=== PATIENT | male | born 1945 | race Caucasian/White ===

== ENCOUNTER → 2020-02-17 | Outpatient (CLI) | payer MEDICARE ==
[~2020-02-17] MED LIST: AMLO10 PO; ASPI81CH PO; Aspirin EC81 MG PO; BENAML10/40 PO; BYSTOLIC; Benicar Hct 401 EAC1 PO; CEPH500 PO; CLON.2 PO; CLOP75 PO; CYCL10 PO; DULO60 PO; EZET10-40 PO; FENO160 PO; FENO67 PO; HYDACE5 PO; HYDCHL25 PO; LEVSOD75 PO; METO50 PO; N-ACETYL-L-CYS600 MG PO; NEBI10 PO; SIMV40 PO; SPIR25 PO; SULTRIDS PO; VALS80 PO
== END | disposition home or self-care (01) ==
LOC: PLD 10:45 → LAB SHORT 10:45
DX: D22.5 Melanocytic nevi of trunk (principal)
CPT/HCPCS: 88305

== ENCOUNTER 2020-09-18 06:46 | Emergency (ER) | payer MEDICARE, BC ==
[~2020-09-18] VITALS: Ht 177.8 cm; Wt 117.9 kg
[~2020-09-18 06:46] MED LIST changes: +ATOR80 PO; +ATORVASTATIN CA80 M1; +COQ-10100 MG PO; +ELIQUIS5 M2 PO; +EUTHYROX175 MCG; +FURO40 PO; +L-LYSINE500 M1 PO; -LEVSOD75 PO; +OMEP20ER PO; -SIMV40 PO; +VITAMIN D325 MC3 PO
[2020-09-18] MEDS ORDERED: DOXY100 PO (07:36)
== END 2020-09-18 09:04 | disposition home or self-care (01) ==
LOC: ER 06:46
DX: L03.116 Cellulitis of left lower limb (principal); L03.115 Cellulitis of right lower limb; I10 Essential (primary) hypertension; I25.2 Old myocardial infarction; Z79.82 Long term (current) use of aspirin; Z79.899 Other long term (current) drug therapy; Z79.01 Long term (current) use of anticoagulants; Z87.891 Personal history of nicotine dependence; Z95.5 Presence of coronary angioplasty implant and graft
CPT/HCPCS: 36415; 99283; A9270

== ENCOUNTER → 2022-09-05 | Outpatient (CLI) | payer MEDICARE ==
[~2022-09-05] MED LIST changes: +ALLO300; +CATAPRES0.2 M1; +DOXY100 PO; +OLME20; +TRAM50
[2022-09-05 16:38] LABS: Source, Urine Clean Catch
[2022-09-05 17:35] LABS: Appearance, Urine Clear (Clear); Bilirubin, Urine Neg (Neg); Blood, Urine 1+ (Neg); Color, Urine Yellow (P-Yellow); Glucose Qualitative, Urine Neg (Neg); Ketones, Urine Neg (Neg); Leukocyte Esterase, Urine Neg (Neg); Nitrite, Urine Neg (Neg); Protein, Urine 3+ (Neg); Urobilinogen, Urine NORM (Normal)
[2022-09-05 17:51] LABS: Bacteria Few /hpf; Squamous Epithelial Cells Rare /hpf (Few); White Blood Cells, Urine 0-2 /hpf (0-5)
[2022-09-05 18:24] LABS: Creatinine, Urine Random 58.9 mg/dL (27.00-270.00); Protein, Urine Random 76.3 mg/dL (0.0-11.9); Protein/Creat Ratio, Ur Random 1.3
== END | disposition home or self-care (01) ==
LOC: LAB SHORT 14:20
PROVIDERS: Internal Medicine Nephrology
DX: N18.32 Chronic kidney disease, stage 3b (principal)
CPT/HCPCS: 81001; 82570; 84156

== ENCOUNTER 2024-08-15 21:45 | Emergency (ER) | payer OTHER ==
[~2024-08-15] VITALS: Ht 175.3 cm; Wt 86.2 kg
[2024-08-15 21:48] VITALS: BP 136/70
== END 2024-08-15 22:25 | disposition home or self-care (01) ==
LOC: ER 21:45
DX: M25.512 Pain in left shoulder (principal); I10 Essential (primary) hypertension; I25.2 Old myocardial infarction; W19.XXXA Unspecified fall, initial encounter; Z87.891 Personal history of nicotine dependence; Z79.82 Long term (current) use of aspirin; Z79.899 Other long term (current) drug therapy
CPT/HCPCS: 73030; 99283-25